=== PATIENT | male | born 1975 | race Caucasian/White ===

== ENCOUNTER 2019-02-10 15:15 | Outpatient (RCR) | payer OTHER, SELFPAY ==
[2019-01-21 13:19] VITALS: BP 176/97; PULSE 75; RESP 20; TEMP 36.9; BMI 64.5
--- NOTE | 2019-01-21 16:23 | PCM.WC.HP ---
(1) PVD (peripheral vascular disease) Status: Acute Current Visit: Yes Code(s): I73.9 - Peripheral vascular disease, unspecified (2) Chronic acquired lymphedema Status: Chronic Current Visit: Yes Code(s): I89.0 - Lymphedema, not elsewhere classified (3) Venous stasis ulcer of left lower leg with edema of left lower leg Status: Acute Current Visit: Yes Code(s): I83.029 - Varicose veins of left lower extremity with ulcer of unspecified site; I83.892 - Varicose veins of left lower extremity with other complications; L97.929 - Non-pressure chronic ulcer of unspecified part of left lower leg with unspecified severity; R60.9 - Edema, unspecified (4) Venous stasis ulcer of right lower leg with edema of right lower leg Status: Acute Current Visit: Yes Code(s): I83.019 - Varicose veins of right lower extremity with ulcer of unspecified site; I83.891 - Varicose veins of right lower extremity with other complications; L97.919 - Non-pressure chronic ulcer of unspecified part of right lower leg with unspecified severity; R60.9 - Edema, unspecified (5) Morbid obesity Status: Acute Current Visit: Yes Code(s): E66.01 - Morbid (severe) obesity due to excess calories History of Present Illness Date of Service: 01/21/19 Chief Complaint: Bilateral lower extremity ulcers present now for greater than 4 weeks. History of Wound: This is a 43-year-old white male who presents to the wound healing center today with complaint of nonhealing ulcers on bilateral lower extremities for greater than 4 weeks. He has a past medical history significant for peripheral vascular disease, [id number] smoking history, lymphedema, prior venous leg ulcers, and morbid obesity. The patient states that he has been utilizing Adaptic over his ulcerations. He states that he has lymphedema pumps at home but does not use them. He does state that he went to the emergency department recently and his legs were wrapped and bandaged. He notes a large amount of clear/yellow drainage. He does state that the wounds are painful at times. He denies any other aggravating or relieving factors. He does not have recent vascular testing. All other systems were reviewed and were negative with exception of those listed above. Past Medical History Past Medical History: Chronic Problems Chronic acquired lymphedema (Chronic) Surgical History: no surgical history Allergies/Adverse Reactions: Allergies No Known Allergies Allergy (Verified 01/21/19 13:35) Home Medications: Ambulatory Orders Medication Instructions Recorded Furosemide [Lasix] 20 mg PO BIDLX 01/21/19 Hydrocodone/Acetaminophen [Russell 1 ea PO Q4H PRN 01/21/19 5-325 Tablet] Lives: Alone Smoking Status: Former smoker Tobacco Use: Non-smoker Alcohol: None Drugs: None Review of Systems Constitutional: Denies: Chills, Fever, Weight Change Eyes: Denies: Pain, Vision Change HEENT: Denies: Difficulty Hearing, Difficulty Swallowing, Sinus Congestion Cardiovascular: Reports: Edema. Denies: Chest Pain, Palpitations Respiratory: Denies: Cough, Shortness of Breath Gastrointestinal: Denies: Diarrhea, Nausea, Vomiting Genitourinary: Denies: Dysuria, Hematuria Skin: Reports: Wounds - See HPI Endocrine: Denies: Heat/ Cold Intolerance, Polydipsia, Polyuria Hematologic/ Lymphatic: Denies: Easy Bruising, Easy Bleeding - Physical Exam Vital Signs Temp Pulse Resp BP 98.4 F 75 20 H 176/97 H 01/21/19 13:19 01/21/19 13:19 01/21/19 13:19 01/21/19 13:19 General: Alert, Oriented x3, Cooperative, No apparent distress HEENT: PERRLA, EOMI Neck: Supple, No JVD, Negative Carotid Bruits Lungs: Clear to auscultation Cardiovascular: Regular rate, Regular Rhythm Abdomen: Soft, Non Tender Extremities: Capillary Refill Less than 3 Seconds, Edema - 3+ pitting edema bilateral lower extremities with hemosiderin staining bilaterally and chronic venous changes present., Peripheral Pulses Normal Skin: Ulcer/ Wound - Ulcerations to bilateral lower extremities with large amount of adherent slough, less than 1 cm of periwound bed erythema, no odor, moderate amount of serous drainage present, no redness or streaking noted at this time. Wound Measurements and Assessment WC - Nurse 1 - General Ulcer Measurement Start: 01/21/19 13:16 Freq: Status: Active Protocol: Activity Type Activity Date Activity User E-Sign Co-Sign Detail Recorded Client Recorded Date Recorded By Document 01/21/19 13:19 NV [id number] 01/21/19 13:34 NV 01/21/19 13:19 Wound Center Nurse 1 [Ulcer Assessment] #3- R LAT LE CLUSTER -Combined with other wound No -Current Size (cm) - Length 5.5 -Current Size (cm) - Width 2.5 -Current Size (cm) - Depth 0.2 -Total Square Cm 13.75 -Date of Last Picture (Recall this 01/21/19 field) -Photo Taken Yes -Epithelialization None Present -Tunneling No -Undermining/Tunneling No -Circular Undermining No -Exudate Amt Medium -Exudate Type Serous -Wound Margin Distinct, Outline Attached -Granulation Amt Medium (34-66%) -Granulation Quality Red -Slough/Fibrin Yes -Necrosis Amt Medium (34-66%) -Necrotic Tissue Type Adherent Slough -Texture (Krystle-wound Skin Appearance) Assessed, Scarring -Moisture (Krystle-wound Skin Appearance Assessed,Dry/ ) Scaly -Color (Krystle-wound Skin Appearance) Assessed, Erythema, Hemosiderin Staining -Temperature (Krystle-wound Skin No Abnormality Appearance) (Pt Warm) -Tenderness on Palpation (Krystle-wound Yes Skin Appearance) -Ulcer Cleansing SOAPY WATER -Foul Odor after Cleansing No -Anesthetic Used 4% Lidocaine Solution #2- L LATERAL/POSTERIOR LE CLUSTER -Combined with other wound No -Current Size (cm) - Length 13.5 -Current Size (cm) - Width 18 -Current Size (cm) - Depth 0.2 -Total Square Cm 243.0 -Date of Last Picture (Recall this 01/21/19 field) -Photo Taken Yes -Epithelialization None Present -Tunneling No -Undermining/Tunneling No -Circular Undermining No -Exudate Amt Large -Exudate Type Serous -Wound Margin Distinct, Outline Attached -Granulation Amt Medium (34-66%) -Granulation Quality Red -Slough/Fibrin Yes -Necrosis Amt Medium (34-66%) -Necrotic Tissue Type Adherent Slough -Texture (Krystle-wound Skin Appearance) Assessed, Scarring -Moisture (Krystle-wound Skin Appearance Assessed, ) Weeping,Dry/ Scaly -Color (Krystle-wound Skin Appearance) Assessed, Erythema, Hemosiderin Staining -Temperature (Krystle-wound Skin No Abnormality Appearance) (Pt Warm) -Tenderness on Palpation (Krystle-wound Yes Skin Appearance) -Ulcer Cleansing SOAPY WATER -Foul Odor after Cleansing No -Anesthetic Used 4% Lidocaine Solution [Edema Assessment] -Lower Limb Edema Present Yes -Right Calf (cm) 56 -Right Ankle (cm) 34 -Left Calf (cm) 58 -Left Ankle (cm) 35 WC - Nurse 2 - General Ulcer CM Notes Start: 01/21/19 13:16 Freq: Status: Active Protocol: Activity Type Activity Date Activity User E-Sign Co-Sign Detail Recorded Client Recorded Date Recorded By Document 01/21/19 14:15 MW [id number] 01/21/19 14:26 MW 01/21/19 14:15 Wound Center Nurse 2 [Procedure/Treatment] #3- R LAT LE CLUSTER -Time 14:24 -Correct Patient Yes -Correct Side, Site, Position Yes -Correct Procedure Yes -Procedure Performed Yes -Type of Procedure Debridement -Clinical Debridement Subcutaneous -Post Debridement Size (cm) - Length 7.0 -Post Debridement Size (cm) - Width 5.0 -Post Debridement Size (cm) - Depth 0.2 -Total Square Cm 35.00 -Wound/Ulcer Outcome Not Healed -Ulcer Cleansing Rinsed/ Irrigated with Saline -Foul Odor after Cleansing No -Bioengineered Tissue No -Bleeding Controlled with Pressure -Offloading No -Treatment Response Procedure Tolerated Well #2- L LATERAL/POSTERIOR LE CLUSTER -Time 14:15 -Correct Patient Yes -Correct Side, Site, Position Yes -Correct Procedure Yes -Procedure Performed Yes -Type of Procedure Debridement -Clinical Debridement Subcutaneous -Post Debridement Size (cm) - Length 17.0 -Post Debridement Size (cm) - Width 20.0 -Post Debridement Size (cm) - Depth 0.3 -Total Square Cm 340.00 -Wound/Ulcer Outcome Not Healed -Ulcer Cleansing Rinsed/ Irrigated with Saline -Foul Odor after Cleansing No -Bioengineered Tissue No -Bleeding Controlled with Pressure -Offloading No -Treatment Response Procedure Tolerated Well [See Physician Procedure note for Specifics] Pain Scale: 0-10 Numeric [Pain] -Is Patient Pain Free? Yes Neurological: Neuro grossly intact Psych/Mental Status: Normal Affect, Appropriate, Alert and oriented to time, place, person, mood and affect Debridement Note Post-Debridement Measurements/Treatment HUGO - Nurse 2 - General Ulcer CM Notes Start: 01/21/19 13:16 Freq: Status: Active Protocol: Activity Type Activity Date Activity User E-Sign Co-Sign Detail Recorded Client Recorded Date Recorded By Document 01/21/19 14:15 MW [id number] 01/21/19 14:26 MW 01/21/19 14:15 Wound Center Nurse 2 #3- R LAT LE CLUSTER -Time 14:24 -Correct Patient Yes -Correct Side, Site, Position Yes -Correct Procedure Yes -Procedure Performed Yes -Type of Procedure Debridement -Clinical Debridement Subcutaneous -Post Debridement Size (cm) - Length 7.0 -Post Debridement Size (cm) - Width 5.0 -Post Debridement Size (cm) - Depth 0.2 -Total Square Cm 35.00 -Wound/Ulcer Outcome Not Healed -Ulcer Cleansing Rinsed/ Irrigated with Saline -Foul Odor after Cleansing No -Bioengineered Tissue No -Bleeding Controlled with Pressure -Offloading No -Treatment Response Procedure Tolerated Well #2- L LATERAL/POSTERIOR LE CLUSTER -Time 14:15 -Correct Patient Yes -Correct Side, Site, Position Yes -Correct Procedure Yes -Procedure Performed Yes -Type of Procedure Debridement -Clinical Debridement Subcutaneous -Post Debridement Size (cm) - Length 17.0 -Post Debridement Size (cm) - Width 20.0 -Post Debridement Size (cm) - Depth 0.3 -Total Square Cm 340.00 -Wound/Ulcer Outcome Not Healed -Ulcer Cleansing Rinsed/ Irrigated with Saline -Foul Odor after Cleansing No -Bioengineered Tissue No -Bleeding Controlled with Pressure -Offloading No -Treatment Response Procedure Tolerated Well Pain Scale: 0-10 Numeric Is Patient Pain Free? Yes Wound debrided: Right lower extremity ulcer venous Laterality: Right Type of Debridement: Excisional debridement Anesthesia Used: 5% Lidocaine Gel Depth: in the subcutaneous layer Percentage of wound debrided: 100 Instrument Used: 7mm curette Tissue Removed: Large amount of slough and devitalized tissue Severity: Fat Layer Exposed Amount of bleeding with debridement: Mild Bleeding Controlled with: Pressure Patient tolerated procedure well - Additional Wound Wound debrided: Venous leg ulcer left lower extremity Laterality: Left Type of Debridement: Excisional debridement Anesthesia Used: 5% Lidocaine Gel Depth: in the subcutaneous layer Percentage of wound debrided: 100 Instrument Used: 7mm curette Tissue Removed: Slough and devitalized tissue Severity: Fat Layer Exposed Amount of bleeding with debridement: Mild Bleeding Controlled with: Pressure Patient tolerated procedure: Patient tolerated procedure well Assessment/Plan Active Problems PVD (peripheral vascular disease) (Acute) Chronic acquired lymphedema (Chronic) Venous stasis ulcer of left lower leg with edema of left lower leg (Acute) Venous stasis ulcer of right lower leg with edema of right lower leg (Acute) Morbid obesity (Acute) Assessment: See above diagnoses Plan: The patient was seen and examined at the wound center today and was updated on the plan of care. A subcutaneous debridement was performed today. The patient tolerated the procedure well. The patients wound care will consist of: Application of Aquacel silver over top of all ulcerations and then application of bilateral Unna boots which patient has tolerated well in the past, change Unna boots in 4 days. Wound cultures were collected. Baseline bloodwork ordered. Vascular studies ordered. Patient educated on the importance of diet on wound healing and instructed to increase protein and vitamin C intake. Patient verbalized understanding. Patient will follow up at wound healing center in one week or sooner if needed. Did instruct patient that after we removed the Unna boot, he will have to be compliant with his lymphedema pumps. Patient has been advised to elevate lower extremities as much as possible. Elevation is to be implemented during daytime hours and legs are to be elevated to heart level, or higher, as much as possible. Prolonged idle sitting has been discouraged. Activity and ambulation has been encouraged. Given the duration of his wound and the fact that he has failed standard wound therapy for greater than 4 weeks, will apply for the use of an advanced skin substitute. This note was generated with [employer] dictation software. It may contain incorrect words, spelling, and punctuation that were not noted in checking the note before signing. Code Visit Office Visits / Consults: 77730 OV L4 New [id number]: [id number] Carly subq tissue 20 sq cm/< Add On Codes: 92189 Carly subq tissue add-on
[2019-01-25 08:36] VITALS: BP 156/98; PULSE 69; RESP 18; TEMP 37.1; BMI 64.5
[2019-01-25 09:55] LABS: Hematocrit 45.4 % (40-54); Hemoglobin 15.3 g/dL (13.0-16.5); Mean Corp Hgb Conc 33.7 g/dL (32-36); Mean Corpuscular Hgb 27.6 pg (27.0-32.0); Mean Corpuscular Volume 81.8 fL (80-94); Mean Platelet Vol. 9.3 fl (6.2-12.0); Platelet Count 328 K/mm3 (150-450); RBC Distribution Width CV 12.5 % (11.6-14.6); RBC Distribution Width SD 37.1 fl (35.1-43.9); Red Blood Count 5.55 M/mm3 (4.6-6.2); White Blood Count 8.7 K/mm3 (4.4-11.0)
[2019-01-25 10:25] LABS: Hemoglobin A1c 5.2 % (4.2-6.3)
[2019-01-25 10:41] LABS: ALB/GLOB Ratio 0.9 RATIO (0.9-2.4); AST(SGOT) 21 U/L (15-37); Alanine Aminotransfer ALT/SGPT 23 U/L (16-61); Albumin, Serum 3.5 g/dL (3.2-5.0); Alkaline Phosphatase 88 U/L (45-117); Anion Gap 9 (5-15); BUN 16 mg/dL (7-18); Calcium,Total 8.8 mg/dL (8.5-10.1); Chloride 103 mmol/L (98-107); EST Glomerular Filtration Rate 111 mL/min (>60); Est Glom Filt Rate - Afr Amer 134 mL/min (>60); Globulin 3.9 g/dL (2.2-4.2); Glucose 86 mg/dL (74-106); Prealbumin 23.3 mg/dL (20.0-40.0); Protein, Total 7.4 g/dL (6.4-8.2); Sodium Level 140 mmol/L (136-145)
[2019-01-28 13:55] VITALS: BP 187/98; PULSE 67; RESP 20; TEMP 35.9; BMI 64.5
--- NOTE | 2019-02-01 10:05 | VDLE_ITS ---
Reason For Study: Edema RIGHT LEFT GSV is normal. GSV is normal. CFV is compressible, spontaneous, phasic, CFV is compressible, spontaneous, phasic, competent and demonstrates normal competent, and demonstrates normal augmentation. augmentation. FV is compressible, spontaneous, phasic, FV is compressible, spontaneous, phasic, competent and demonstrates normal competent and demonstrates normal augmentation. augmentation. POP V is compressible, spontaneous, phasic, POP V is compressible, spontaneous, phasic, competent and demonstrates normal competent and demonstrates normal augmentation. augmentation. T/P Trunk is compressible. T/P Trunk is compressible. Unable to visualize PTV, PeroV and GSV below Unable to visualize PTV, PeroV and GSV below knee due to leg wrappings. knee due to leg wrappings. SFJ is INCOMPETENT and measures 0.52 x 0.56 SFJ is INCOMPETENT and measures 0.86 x 0.78 cm. cm. GSV proximal thigh measures 0.61 x 0.64 cm. GSV proximal thigh measures 0.49 x 0.51 cm. GSV at knee measures 0.65 x 0.65 cm. GSV at knee measures 0.54 x 0.52 cm. GSV above knee is INCOMPETENT for greater GSV above knee is competent. than 0.5 seconds. Procedure Exam performed in department. The study was technically limited. The study was technically difficult. A preliminary report was called and/or faxed to . Interpretation Summary Deep veins of the lower extremities are bilaterally patent and compressible segmentally. There is no evidence of deep vein thrombosis on either side. Valvular competence appears intact within the proximal deep venous systems bilaterally. The great saphenous veins appear bilaterally patent and compressible segmentally. The posterior tibial veins and peroneal veins, and the great saphenous veins below the knees, were not visualized due to the presence of wraps. Sapheno-femoral junctions are bilaterally incompetent . The right great saphenous vein appears incompetent above the knee. The left great saphenous vein appears competent above the knee. Ordering Physician: Gabo Cheung Performed By: Yoselin Jacobo RVT
--- NOTE | 2019-02-01 10:05 | ART_ITS ---
Reason For Study: PVD Procedure A bilateral lower extremity continuous wave Doppler with analog waveform analysis,segmental pressures,and ankle brachial indexes without exercise. Left Segmental Pressures Left brachial= 166mmHg. Left dorsalis pedis artery = 207mmHg. Left digit = 241 mmHg. The left dorsalis pedis waveforms are triphasic. Right Segmental Pressures Right brachial= 166mmHg. Right dorsalis pedis artery = 201mmHg. Right digit = >254 mmHg. The right dorsalis pedis waveforms are triphasic. Indices The right ankle brachial index by the dorsalis pedis is 1.21. The right digital-brachial index is NC. The left ankle brachial index by the dorsalis pedis is 1.25. The left digital-brachial index is 1.45. Interpretation Summary Triphasic Doppler waveforms are noted at ankle level bilaterally. Pulse-volume recordings appear satisfactory at all levels bilaterally. Resting ankle-brachial indices are normal bilaterally. The right digital-brachial index could not be determined due to the noncompressibility of the vasculature. The left digital-brachial index is supra-normal. There is no evidence of significant arterial occlusive disease in the lower extremities bilaterally. However, there is evidence of arterial calcification involving the digital arteries bilaterally. Ordering Physician: Gabo Cheung Performed By: Yoselin Jacobo RVT
[2019-02-01 11:17] VITALS: BP 157/93; PULSE 70; RESP 24; TEMP 36.6; BMI 64.5
--- NOTE | 2019-02-02 16:37 | PCM.WC.PN ---
(1) PVD (peripheral vascular disease) Status: Acute Current Visit: Yes Code(s): I73.9 - Peripheral vascular disease, unspecified (2) Chronic acquired lymphedema Status: Chronic Current Visit: Yes Code(s): I89.0 - Lymphedema, not elsewhere classified (3) Venous stasis ulcer of left lower leg with edema of left lower leg Status: Acute Current Visit: Yes Code(s): I83.029 - Varicose veins of left lower extremity with ulcer of unspecified site; I83.892 - Varicose veins of left lower extremity with other complications; L97.929 - Non-pressure chronic ulcer of unspecified part of left lower leg with unspecified severity; R60.9 - Edema, unspecified (4) Venous stasis ulcer of right lower leg with edema of right lower leg Status: Acute Current Visit: Yes Code(s): I83.019 - Varicose veins of right lower extremity with ulcer of unspecified site; I83.891 - Varicose veins of right lower extremity with other complications; L97.919 - Non-pressure chronic ulcer of unspecified part of right lower leg with unspecified severity; R60.9 - Edema, unspecified (5) Morbid obesity Status: Acute Current Visit: Yes Code(s): E66.01 - Morbid (severe) obesity due to excess calories Type of Wound Date of Service: 01/28/19 Chief Complaint: Bilateral lower extremity ulcers present now for greater than 4 weeks. History of Wound: This is a 43-year-old white male who presents to the wound healing center today with complaint of nonhealing ulcers on bilateral lower extremities for greater than 4 weeks. He has a past medical history significant for peripheral vascular disease, [id number] smoking history, lymphedema, prior venous leg ulcers, and morbid obesity. The patient states that he has been utilizing Adaptic over his ulcerations. He states that he has lymphedema pumps at home but does not use them. He does state that he went to the emergency department recently and his legs were wrapped and bandaged. He notes a large amount of clear/yellow drainage. He does state that the wounds are painful at times. He denies any other aggravating or relieving factors. He does not have recent vascular testing. All other systems were reviewed and were negative with exception of those listed above. Progress of Wound: Ulcerations are improving in size, no new concerns at this time. Cultures were reviewed and showed Pseudomonas, strep, and staph and patient was placed on Cipro and clindamycin and Culturelle which he is tolerating well.The patient otherwise denies any fever, chills, nausea, vomiting, shortness of breath, chest pain or pressure, palpitations, orthopnea, lower extremity edema, syncope or presyncopal episodes. - Physical Exam Vital Signs Temp Pulse Resp BP 97.8 F 70 24 H 157/93 H 02/01/19 11:17 02/01/19 11:17 02/01/19 11:17 02/01/19 11:17 General: Alert, Oriented x3, Cooperative, No apparent distress HEENT: Atraumatic Oral: Moist Mucosa Lungs: Clear to auscultation, Normal air movement Cardiovascular: Regular rate, Regular Rhythm Abdomen: Soft, Non Tender, Obese Extremities: No clubbing, No cyanosis, Edema - +1 bilateral lower extremity edema Skin: Ulcer/ Wound - Ulcerations to bilateral lower extremities with adherent slough, no signs of obvious infection at this time, chronic venous changes present bilateral lower extremities withHemosiderin staining Wound Measurements and Assessment WC - Nurse 1 - General Ulcer Measurement Start: 01/21/19 13:16 Freq: Status: Active Protocol: Activity Type Activity Date Activity User E-Sign Co-Sign Detail Recorded Client Recorded Date Recorded By Document 02/01/19 11:17 DL [id number] 02/01/19 11:36 DL 02/01/19 11:17 Wound Center Nurse 1 [Ulcer Assessment] #3- R LAT LE CLUSTER -Temperature (Krystle-wound Skin No Abnormality Appearance) (Pt Warm) -Tenderness on Palpation (Krystle-wound No Skin Appearance) -Ulcer Cleansing Wound Cleanser -Foul Odor after Cleansing No #2- L LATERAL/POSTERIOR LE CLUSTER -Temperature (Krystle-wound Skin No Abnormality Appearance) (Pt Warm) -Tenderness on Palpation (Krystle-wound No Skin Appearance) -Ulcer Cleansing Wound Cleanser -Foul Odor after Cleansing No Neurological: Neuro grossly intact Psych/Mental Status: Normal Affect, Appropriate, Alert and oriented to time, place, person, mood and affect Debridement Note Post-Debridement Measurements/Treatment WC - Nurse 2 - General Ulcer CM Notes Start: 01/21/19 13:16 Freq: Status: Active Protocol: Activity Type Activity Date Activity User E-Sign Co-Sign Detail Recorded Client Recorded Date Recorded By Document 01/21/19 14:15 MW [id number] 01/21/19 14:26 MW Document 01/28/19 14:50 MW [id number] 01/28/19 14:53 MW 01/21/19 01/28/19 14:15 14:50 Wound Center Nurse 2 #3- R LAT LE CLUSTER -Time 14:24 14:50 -Correct Patient Yes Yes -Correct Side, Site, Position Yes Yes -Correct Procedure Yes Yes -Procedure Performed Yes Yes -Type of Procedure Debridement Debridement -Clinical Debridement Subcutaneous Subcutaneous -Post Debridement Size (cm) - Length 7.0 6.0 -Post Debridement Size (cm) - Width 5.0 2.0 -Post Debridement Size (cm) - Depth 0.2 0.2 -Total Square Cm 35.00 12.00 -Wound/Ulcer Outcome Not Healed Not Healed -Ulcer Cleansing Rinsed/ Rinsed/ Irrigated with Irrigated with Saline Saline -Foul Odor after Cleansing No No -Bioengineered Tissue No No -Bleeding Controlled with Pressure Pressure -Offloading No No -Treatment Response Procedure Procedure Tolerated Well Tolerated Well #2- L LATERAL/POSTERIOR LE CLUSTER -Time 14:15 14:50 -Correct Patient Yes Yes -Correct Side, Site, Position Yes Yes -Correct Procedure Yes Yes -Procedure Performed Yes Yes -Type of Procedure Debridement Debridement -Clinical Debridement Subcutaneous Subcutaneous -Post Debridement Size (cm) - Length 17.0 14.0 -Post Debridement Size (cm) - Width 20.0 17.5 -Post Debridement Size (cm) - Depth 0.3 0.2 -Total Square Cm 340.00 245.00 -Wound/Ulcer Outcome Not Healed Not Healed -Ulcer Cleansing Rinsed/ Rinsed/ Irrigated with Irrigated with Saline Saline -Foul Odor after Cleansing No No -Bioengineered Tissue No No -Bleeding Controlled with Pressure Pressure -Offloading No No -Treatment Response Procedure Procedure Tolerated Well Tolerated Well Pain Scale: 0-10 Numeric Is Patient Pain Free? Yes Yes Wound debrided: Right and left venous leg ulcers Type of Debridement: Excisional debridement Anesthesia Used: 5% Lidocaine Gel Depth: in the subcutaneous layer Percentage of wound debrided: 100 Instrument Used: 7mm curette Tissue Removed: Slough and devitalized tissue Severity: Fat Layer Exposed Amount of bleeding with debridement: Mild Bleeding Controlled with: Pressure Patient tolerated procedure well Assessment/Plan Active Problems PVD (peripheral vascular disease) (Acute) Chronic acquired lymphedema (Chronic) Venous stasis ulcer of left lower leg with edema of left lower leg (Acute) Venous stasis ulcer of right lower leg with edema of right lower leg (Acute) Morbid obesity (Acute) Assessment: See above diagnoses Plan: The patient was seen and examined at the wound center today and was updated on the plan of care. A subcutaneous debridement was performed today. The patient tolerated the procedure well. The patients wound care will consist of: Application of Aquacel silver over top of all ulcerations and then application of bilateral Unna boots which patient has tolerated well in the past, change Unna boots in 4 days. Wound cultures were collected Prior and showed Pseudomonas, strep, and staph and patient was placed on Cipro, clindamycin, and Culturelle. Baseline bloodwork ordered And pending at this time. Vascular studies Pending. Patient educated on the importance of diet on wound healing and instructed to increase protein and vitamin C intake. Patient verbalized understanding. Patient will follow up at wound healing center in one week or sooner if needed. Did instruct patient that after we removed the Unna boot, he will have to be compliant with his lymphedema pumps. Patient has been advised to elevate lower extremities as much as possible. Elevation is to be implemented during daytime hours and legs are to be elevated to heart level, or higher, as much as possible. Prolonged idle sitting has been discouraged. Activity and ambulation has been encouraged. Given the duration of his wound and the fact that he has failed standard wound therapy for greater than 4 weeks, will apply for the use of an advanced skin substitute. This note was generated with [employer] software. It may contain incorrect words, spelling, and punctuation that were not noted in checking the note before signing. Code Visit 111xxx-113xx: 33181 Carly subq tissue 20 sq cm/< Add On Codes: 75634 Carly subq tissue add-on - x 11
[2019-02-04 13:54] VITALS: BP 185/108; PULSE 75; RESP 20; TEMP 36.2; BMI 64.5
--- NOTE | 2019-02-04 18:58 | PN.PCM_ITS ---
(1) PVD (peripheral vascular disease) Status: Acute Code(s): I73.9 - Peripheral vascular disease, unspecified (2) Chronic acquired lymphedema Status: Chronic Code(s): I89.0 - Lymphedema, not elsewhere classified (3) Venous stasis ulcer of left lower leg with edema of left lower leg Status: Acute Code(s): I83.029 - Varicose veins of left lower extremity with ulcer of unspecified site; I83.892 - Varicose veins of left lower extremity with other complications; L97.929 - Non-pressure chronic ulcer of unspecified part of left lower leg with unspecified severity; R60.9 - Edema, unspecified (4) Venous stasis ulcer of right lower leg with edema of right lower leg Status: Acute Code(s): I83.019 - Varicose veins of right lower extremity with ulcer of unspecified site; I83.891 - Varicose veins of right lower extremity with other complications; L97.919 - Non-pressure chronic ulcer of unspecified part of right lower leg with unspecified severity; R60.9 - Edema, unspecified (5) Morbid obesity Status: Acute Code(s): E66.01 - Morbid (severe) obesity due to excess calories Type of Wound Date of Service: 02/04/19 Chief Complaint: Bilateral lower extremity ulcers present now for greater than 4 weeks. History of Wound: This is a 43-year-old white male who presents to the wound healing center today with complaint of nonhealing ulcers on bilateral lower extremities for greater than 4 weeks. He has a past medical history significant for peripheral vascular disease, [id number] smoking history, lymphedema, prior venous leg ulcers, and morbid obesity. The patient states that he has been utilizing Adaptic over his ulcerations. He states that he has lymphedema pumps at home but does not use them. He does state that he went to the emergency department recently and his legs were wrapped and bandaged. He notes a large amount of clear/yellow drainage. He does state that the wounds are painful at times. He denies any other aggravating or relieving factors. He does not have recent vascular testing. All other systems were reviewed and were negative with exception of those listed above. Progress of Wound: Ulcerations are improving in size, no new concerns at this time. Cultures were reviewed and showed Pseudomonas, strep, and staph and patient was placed on Cipro and clindamycin and Culturelle which he is nury ating well.The patient otherwise denies any fever, chills, nausea, vomiting, shortness of breath, chest pain or pressure, palpitations, orthopnea, lower extremity edema, syncope or presyncopal episodes. - Physical Exam Vital Signs Temp Pulse Resp BP 97.1 F L 75 20 H 185/108 H 02/04/19 13:54 02/04/19 13:54 02/04/19 13:54 02/04/19 13:54 General: Alert, Oriented x3, Cooperative, No apparent distress HEENT: Atraumatic Oral: Moist Mucosa Lungs: Clear to auscultation, Normal air movement Cardiovascular: Regular rate, Regular Rhythm Abdomen: Soft, Non Tender, Obese Extremities: Edema - +2 pitting bilateral lower extremity edema Skin: Ulcer/ Wound - Ulcerations to bilateral lower extremities with adherent slough, no signs of infection at this time, large amount of serosanguineous drainage Neurological: Neuro grossly intact Psych/Mental Status: Normal Affect, Appropriate, Alert and oriented to time, place, person, mood and affect Debridement Note Post-Debridement Measurements/Treatment WC - Nurse 2 - General Ulcer CM Notes Start: 01/21/19 13:16 Freq: Status: Active Protocol: Activity Type Activity Date Activity User E-Sign Co-Sign Detail Recorded Client Recorded Date Recorded By Document 01/21/19 14:15 MW [id number] 01/21/19 14:26 MW Document 01/28/19 14:50 MW [id number] 01/28/19 14:53 MW Document 02/04/19 14:56 MW [id number] 02/04/19 15:06 MW 01/21/19 01/28/19 02/04/19 14:15 14:50 14:56 Wound Center Nurse 2 #3- R LAT LE CLUSTER -Time 14:24 14:50 14:56 -Correct Patient Yes Yes Yes -Correct Side, Site, Position Yes Yes Yes -Correct Procedure Yes Yes Yes -Procedure Performed Yes Yes Yes -Type of Procedure Debridement Debridement Debridement -Clinical Debridement Subcutaneous Subcutaneous Subcutaneous -Post Debridement Size (cm) - Length 7.0 6.0 5.3 -Post Debridement Size (cm) - Width 5.0 2.0 2.5 -Post Debridement Size (cm) - Depth 0.2 0.2 0.2 -Total Square Cm 35.00 12.00 13.25 -Wound/Ulcer Outcome Not Healed Not Healed Not Healed -Ulcer Cleansing Rinsed/ Rinsed/ Rinsed/ Irrigated with Irrigated with Irrigated with Saline Saline Saline -Foul Odor after Cleansing No No No -Bioengineered Tissue No No No -Bleeding Controlled with Pressure Pressure Pressure,Silver Nitrate -Offloading No No No -Treatment Response Procedure Procedure Procedure Tolerated Well Tolerated Well Tolerated Well #2- L LATERAL/POSTERIOR LE CLUSTER -Time 14:15 14:50 14:56 -Correct Patient Yes Yes Yes -Correct Side, Site, Position Yes Yes Yes -Correct Procedure Yes Yes Yes -Procedure Performed Yes Yes Yes -Type of Procedure Debridement Debridement Debridement -Clinical Debridement Subcutaneous Subcutaneous Subcutaneous -Post Debridement Size (cm) - Length 17.0 14.0 16.0 -Post Debridement Size (cm) - Width 20.0 17.5 12.0 -Post Debridement Size (cm) - Depth 0.3 0.2 0.2 -Total Square Cm 340.00 245.00 192.00 -Wound/Ulcer Outcome Not Healed Not Healed Not Healed -Ulcer Cleansing Rinsed/ Rinsed/ Rinsed/ Irrigated with Irrigated with Irrigated with Saline Saline Saline -Foul Odor after Cleansing No No No -Bioengineered Tissue No No No -Bleeding Controlled with Pressure Pressure Pressure,Silver Nitrate -Offloading No No No -Treatment Response Procedure Procedure Procedure Tolerated Well Tolerated Well Tolerated Well Pain Scale: 0-10 Numeric Is Patient Pain Free? Yes Yes Yes Wound debrided: Right lower extremity venous leg ulcers Laterality: Right Type of Debridement: Excisional debridement Anesthesia Used: 5% Lidocaine Gel Depth: in the subcutaneous layer Percentage of wound debrided: 100 Instrument Used: 7mm curette Tissue Removed: Slough and devitalized tissue Severity: Fat Layer Exposed Amount of bleeding with debridement: Mild Bleeding Controlled with: Pressure, Silver Nitrate Patient tolerated procedure well - Additional Wound Wound debrided: Left lower extremity venous leg ulcers Laterality: Left Type of Debridement: Excisional debridement Anesthesia Used: 5% Lidocaine Gel Depth: in the subcutaneous layer Percentage of wound debrided: 100 Instrument Used: 7mm curette Tissue Removed: Slough and devitalized tissue Severity: Fat Layer Exposed Amount of bleeding with debridement: Mild Bleeding Controlled with: Pressure, Silver Nitrate Patient tolerated procedure: Patient tolerated procedure well Assessment/Plan Assessment: See above diagnoses Plan: The patient was seen and examined at the wound center today and was updated on the plan of care. A subcutaneous debridement was performed today. The patient tolerated the procedure well. The patients wound care will consist of: Application of Aquacel silver over top of all ulcerations and then application of bilateral Unna boots which patient has tolerated well in the past, change Unna boots in 4 days. Wound cultures were collected Prior and showed Pseudomonas, strep, and staph and patient was placed on Cipro, clindamycin, and Culturelle Which he has completed. Baseline bloodwork ordered And Essentially normal. Vascular studies Showed venous insufficiency and normal ABIs without any evidence of arterial occlusive disease. Patient educated on the importance of diet on wound healing and instructed to increase protein and vitamin C intake. Patient verbalized understanding. Patient will follow up at wound healing center in one week or sooner if needed. Did instruct patient that after we removed the Unna boot, he will have to be compliant with his lymphedema pumps. Patient has been advised to elevate lower extremities as much as possible. Elevation is to be implemented during daytime hours and legs are to be elevated to heart level, or higher, as much as possible. Prolonged idle sitting has been discouraged. Activity and ambulation has been encouraged. Given the duration of his wound and the fact that he has failed standard wound therapy for greater than 4 weeks, will apply for the use of an advanced skin substitute. This note was generated with [employer] software. It may contain incorrect words, spelling, and punctuation that were not noted in checking the note before signing. Code Visit 111xxx-113xx: 25758 Carly subq tissue 20 sq cm/< Add On Codes: 69359 Carly subq tissue add-on - x10
[2019-02-10 12:33] VITALS: BP 168/86; PULSE 69; RESP 18; TEMP 36.6; BMI 64.5
--- NOTE | 2019-02-10 21:00 | PN.PCM_ITS ---
(1) PVD (peripheral vascular disease) Status: Acute Code(s): I73.9 - Peripheral vascular disease, unspecified (2) Chronic acquired lymphedema Status: Chronic Code(s): I89.0 - Lymphedema, not elsewhere classified (3) Venous stasis ulcer of left lower leg with edema of left lower leg Status: Acute Code(s): I83.029 - Varicose veins of left lower extremity with ulcer of unspecified site; I83.892 - Varicose veins of left lower extremity with other complications; L97.929 - Non-pressure chronic ulcer of unspecified part of left lower leg with unspecified severity; R60.9 - Edema, unspecified (4) Venous stasis ulcer of right lower leg with edema of right lower leg Status: Acute Code(s): I83.019 - Varicose veins of right lower extremity with ulcer of unspecified site; I83.891 - Varicose veins of right lower extremity with other complications; L97.919 - Non-pressure chronic ulcer of unspecified part of right lower leg with unspecified severity; R60.9 - Edema, unspecified (5) Morbid obesity Status: Acute Code(s): E66.01 - Morbid (severe) obesity due to excess calories Type of Wound Date of Service: 02/10/19 Chief Complaint: Bilateral lower extremity ulcers present now for greater than 4 weeks. History of Wound: This is a 43-year-old white male who presents to the wound healing center today with complaint of nonhealing ulcers on bilateral lower extremities for greater than 4 weeks. He has a past medical history significant for peripheral vascular disease, [id number] smoking history, lymphedema, prior venous leg ulcers, and morbid obesity. The patient states that he has been utilizing Adaptic over his ulcerations. He states that he has lymphedema pumps at home but does not use them. He does state that he went to the emergency department recently and his legs were wrapped and bandaged. He notes a large amount of clear/yellow drainage. He does state that the wounds are painful at times. He denies any other aggravating or relieving factors. He does not have recent vascular testing. All other systems were reviewed and were negative with exception of those listed above. Progress of Wound: Ulcerations are improving in size, no new concerns at this time. Cultures were reviewed and showed Pseudomonas, strep, and staph and patient was placed on Cipro and clindamycin and Culturelle which he complete d.The patient otherwise denies any fever, chills, nausea, vomiting, shortness of breath, chest pain or pressure, palpitations, orthopnea, lower extremity edema, syncope or presyncopal episodes. - Physical Exam Vital Signs Temp Pulse Resp BP 98 F 69 18 168/86 H 02/10/19 12:33 02/10/19 12:33 02/10/19 12:33 02/10/19 12:33 General: Alert, Oriented x3, Cooperative, No apparent distress HEENT: Atraumatic, PERRLA Oral: Moist Mucosa Lungs: Clear to auscultation Cardiovascular: Regular rate Abdomen: Soft, Non Tender, Obese Extremities: No clubbing, No cyanosis, Edema - +1 pitting BLLE edema Skin: Ulcer/ Wound - See nursing documentation, large amount of slough and devitalized tissue present, No signs of infection at this time. Neurological: Neuro grossly intact Psych/Mental Status: Normal Affect, Appropriate, Alert and oriented to time, place, person, mood and affect Debridement Note Post-Debridement Measurements/Treatment WC - Nurse 2 - General Ulcer CM Notes Start: 01/21/19 13:16 Freq: Status: Active Protocol: Activity Type Activity Date Activity User E-Sign Co-Sign Detail Recorded Client Recorded Date Recorded By Document 01/21/19 14:15 MW [id number] 01/21/19 14:26 MW Document 01/28/19 14:50 MW [id number] 01/28/19 14:53 MW Document 02/04/19 14:56 MW [id number] 02/04/19 15:06 MW Document 02/10/19 13:19 [id number] 02/10/19 13:24 01/21/19 01/28/19 02/04/19 14:15 14:50 14:56 Wound Center Nurse 2 #3- R LAT LE CLUSTER -Time 14:24 14:50 14:56 -Correct Patient Yes Yes Yes -Correct Side, Site, Position Yes Yes Yes -Correct Procedure Yes Yes Yes -Procedure Performed Yes Yes Yes -Type of Procedure Debridement Debridement Debridement -Clinical Debridement Subcutaneous Subcutaneous Subcutaneous -Post Debridement Size (cm) - Length 7.0 6.0 5.3 -Post Debridement Size (cm) - Width 5.0 2.0 2.5 -Post Debridement Size (cm) - Depth 0.2 0.2 0.2 -Total Square Cm 35.00 12.00 13.25 -Wound/Ulcer Outcome Not Healed Not Healed Not Healed -Ulcer Cleansing Rinsed/ Rinsed/ Rinsed/ Irrigated with Irrigated with Irrigated with Saline Saline Saline -Foul Odor after Cleansing No No No -Bioengineered Tissue No No No -Bleeding Controlled with Pressure Pressure Pressure,Silver Nitrate -Offloading No No No -Treatment Response Procedure Procedure Procedure Tolerated Well Tolerated Well Tolerated Well #2- L LATERAL/POSTERIOR LE CLUSTER -Time 14:15 14:50 14:56 -Correct Patient Yes Yes Yes -Correct Side, Site, Position Yes Yes Yes -Correct Procedure Yes Yes Yes -Procedure Performed Yes Yes Yes -Type of Procedure Debridement Debridement Debridement -Clinical Debridement Subcutaneous Subcutaneous Subcutaneous -Post Debridement Size (cm) - Length 17.0 14.0 16.0 -Post Debridement Size (cm) - Width 20.0 17.5 12.0 -Post Debridement Size (cm) - Depth 0.3 0.2 0.2 -Total Square Cm 340.00 245.00 192.00 -Wound/Ulcer Outcome Not Healed Not Healed Not Healed -Ulcer Cleansing Rinsed/ Rinsed/ Rinsed/ Irrigated with Irrigated with Irrigated with Saline Saline Saline -Foul Odor after Cleansing No No No -Bioengineered Tissue No No No -Bleeding Controlled with Pressure Pressure Pressure,Silver Nitrate -Offloading No No No -Treatment Response Procedure Procedure Procedure Tolerated Well Tolerated Well Tolerated Well Pain Scale: 0-10 Numeric Is Patient Pain Free? Yes Yes Yes 02/10/19 13:19 Wound Center Nurse 2 #3- R LAT LE CLUSTER -Time 13:19 -Correct Patient Yes -Correct Side, Site, Position Yes -Correct Procedure Yes -Procedure Performed Yes -Type of Procedure Debridement -Clinical Debridement Subcutaneous -Post Debridement Size (cm) - Length 4.5 -Post Debridement Size (cm) - Width 2.0 -Post Debridement Size (cm) - Depth 0.2 -Total Square Cm 9.00 -Wound/Ulcer Outcome Not Healed -Ulcer Cleansing Rinsed/ Irrigated with Saline -Foul Odor after Cleansing No -Bioengineered Tissue No -Bleeding Controlled with Pressure -Offloading No -Treatment Response Procedure Tolerated Well #2- L LATERAL/POSTERIOR LE CLUSTER -Time 13:20 -Correct Patient Yes -Correct Side, Site, Position Yes -Correct Procedure Yes -Procedure Performed Yes -Type of Procedure Debridement -Clinical Debridement Subcutaneous -Post Debridement Size (cm) - Length 16 -Post Debridement Size (cm) - Width 11.5 -Post Debridement Size (cm) - Depth 0.2 -Total Square Cm 184.0 -Wound/Ulcer Outcome Not Healed -Ulcer Cleansing Rinsed/ Irrigated with Saline -Foul Odor after Cleansing No -Bioengineered Tissue No -Bleeding Controlled with Pressure -Offloading No -Treatment Response Procedure Tolerated Well Pain Scale: 0-10 Numeric Is Patient Pain Free? Yes Wound debrided: Bilateral venous leg ulcers Type of Debridement: Excisional debridement Anesthesia Used: 5% Lidocaine Gel Depth: in the subcutaneous layer Percentage of wound debrided: 100 Instrument Used: 7mm curette Tissue Removed: Slough and devitalized tissue Severity: Fat Layer Exposed Amount of bleeding with debridement: Mild Bleeding Controlled with: Pressure Patient tolerated procedure well Assessment/Plan Assessment: See above diagnoses Plan: The patient was seen and examined at the wound center today and was updated on the plan of care. A subcutaneous debridement was performed today. The patient tolerated the procedure well. The patients wound care will consist of: Application of Aquacel silver over top of all ulcerations and then application of bilateral 3 m wraps which patient has tolerated well in the past. Wound cultures were collected Prior and showed Pseudomonas, strep, and staph and patient was placed on Cipro, clindamycin, and Culturelle Which he has completed. Baseline bloodwork ordered And Essentially normal. Vascular studies Showed venous insufficiency and normal ABIs without any evidence of arterial occlusive disease. Patient educated on the importance of diet on wound healing and instructed to increase protein and vitamin C intake. Patient verbalized understanding. Patient will follow up at wound healing center in one week or sooner if needed. Did instruct patient that after we Get his ulcers healed, he will have to be compliant with his lymphedema pumps. Patient has been advised to elevate lower extremities as much as possible. Elevation is to be implemented during daytime hours and legs are to be elevated to heart level, or higher, as much as possible. Prolonged idle sitting has been discouraged. Activity and ambulation has been encouraged. Given the duration of his wound and the fact that he has failed standard wound therapy for greater than 4 weeks, will apply for the use of an advanced skin substitute. This note was generated with [employer]ation software. It may contain incorrect words, spelling, and punctuation that were not noted in checking the note before signing. Code Visit 111xxx-113xx: 07127 Carly subq tissue 20 sq cm/< Add On Codes: 45289 Carly subq tissue add-on
== END 2019-02-13 23:59 ==
LOC: WC 15:15
PROVIDERS: Referring Provider Nurse Practitioner Family; Visit Provider Nurse Practitioner Family
DX: I83.018 Varicose veins of right lower extremity with ulcer other part of lower leg (principal); I83.028 Varicose veins of left lower extremity with ulcer other part of lower leg; L97.812 Non-pressure chronic ulcer of other part of right lower leg with fat layer exposed; L97.822 Non-pressure chronic ulcer of other part of left lower leg with fat layer exposed; I89.0 Lymphedema, not elsewhere classified; E66.01 Morbid (severe) obesity due to excess calories; Z68.44 Body mass index [BMI] 60.0-69.9, adult; Z71.3 Dietary counseling and surveillance; Z87.891 Personal history of nicotine dependence; R60.0 Localized edema; I73.9 Peripheral vascular disease, unspecified; Z79.899 Other long term (current) drug therapy
CPT/HCPCS: 11042; 11045; 29580; 29581; 36415; 80053; 83036; 84134; 85027; 87070; 87075; 87077; 87186; 87205; 93923; 93970; 99212; 99213; G0463

== ENCOUNTER 2019-03-12 10:00 | Outpatient (RCR) | payer OTHER, SELFPAY ==
[2019-02-14 01:13] VITALS: BP 168/86; PULSE 69; RESP 18; TEMP 36.6
[2019-02-15 13:23] VITALS: RESP 20; TEMP 37; BMI 64.5
[2019-02-18 14:13] VITALS: BP 195/107; PULSE 78; RESP 20; TEMP 36.2; BMI 64.5
--- NOTE | 2019-02-18 19:34 | PCM.WC.PN ---
(1) Morbid obesity Status: Acute Code(s): E66.01 - Morbid (severe) obesity due to excess calories (2) PVD (peripheral vascular disease) Status: Acute Code(s): I73.9 - Peripheral vascular disease, unspecified (3) Venous stasis ulcer of left lower leg with edema of left lower leg Status: Acute Code(s): I83.029 - Varicose veins of left lower extremity with ulcer of unspecified site; I83.892 - Varicose veins of left lower extremity with other complications; L97.929 - Non-pressure chronic ulcer of unspecified part of left lower leg with unspecified severity; R60.9 - Edema, unspecified (4) Venous stasis ulcer of right lower leg with edema of right lower leg Status: Acute Code(s): I83.019 - Varicose veins of right lower extremity with ulcer of unspecified site; I83.891 - Varicose veins of right lower extremity with other complications; L97.919 - Non-pressure chronic ulcer of unspecified part of right lower leg with unspecified severity; R60.9 - Edema, unspecified (5) Chronic acquired lymphedema Status: Chronic Code(s): I89.0 - Lymphedema, not elsewhere classified Type of Wound Date of Service: 02/18/19 Chief Complaint: Bilateral lower extremity ulcers present now for greater than 4 weeks. History of Wound: This is a 43-year-old white male who presents to the wound healing center today with complaint of nonhealing ulcers on bilateral lower extremities for greater than 4 weeks. He has a past medical history significant for peripheral vascular disease, [id number] smoking history, lymphedema, prior venous leg ulcers, and morbid obesity. The patient states that he has been utilizing Adaptic over his ulcerations. He states that he has lymphedema pumps at home but does not use them. He does state that he went to the emergency department recently and his legs were wrapped and bandaged. He notes a large amount of clear/yellow drainage. He does state that the wounds are painful at times. He denies any other aggravating or relieving factors. He does not have recent vascular testing. All other systems were reviewed and were negative with exception of those listed above. Progress of Wound: Ulcerations are improving in size, no new concerns at this time. Cultures were reviewed and showed Pseudomonas, strep, and staph and patient was placed on Cipro and clindamycin and Culturelle which he is tolerating well.The patient otherwise denies any fever, chills, nausea, vomiting, shortness of breath, chest pain or pressure, palpitations, orthopnea, lower extremity edema, syncope or presyncopal episodes. - Physical Exam Vital Signs Temp Pulse Resp BP 97.2 F L 78 20 H 195/107 H 02/18/19 14:13 02/18/19 14:13 02/18/19 14:13 02/18/19 14:13 General: Alert, Oriented x3, Cooperative, No apparent distress HEENT: Atraumatic Oral: Moist Mucosa Lungs: Clear to auscultation Cardiovascular: Regular rate Abdomen: Soft, Obese Extremities: No clubbing, No cyanosis, Edema - +1 BLLE edema Skin: Ulcer/ Wound - see nursing documentation, no signs of obvious infection at this time Musculoskeletal: No Tenderness to Palpation of Joints or Extremities Neurological: Motor Exam 5/5 strength throughout Psych/Mental Status: Normal Affect, Appropriate, Alert and oriented to time, place, person, mood and affect Debridement Note Post-Debridement Measurements/Treatment WC - Nurse 2 - General Ulcer CM Notes Start: 02/15/19 13:23 Freq: Status: Active Protocol: Activity Type Activity Date Activity User E-Sign Co-Sign Detail Recorded Client Recorded Date Recorded By Document 02/18/19 14:45 MW [id number] 02/18/19 14:48 MW 02/18/19 14:45 Wound Center Nurse 2 #3- R LAT LE CLUSTER -Time 14:45 -Correct Patient Yes -Correct Side, Site, Position Yes -Correct Procedure Yes -Procedure Performed Yes -Type of Procedure Debridement -Clinical Debridement Subcutaneous -Post Debridement Size (cm) - Length 4.5 -Post Debridement Size (cm) - Width 1.0 -Post Debridement Size (cm) - Depth 0.1 -Total Square Cm 4.50 -Wound/Ulcer Outcome Not Healed -Ulcer Cleansing Rinsed/ Irrigated with Saline -Foul Odor after Cleansing No -Bioengineered Tissue No -Bleeding Controlled with Pressure -Offloading No -Treatment Response Procedure Tolerated Well #2- L LATERAL/POSTERIOR LE CLUSTER -Time 14:46 -Correct Patient Yes -Correct Side, Site, Position Yes -Correct Procedure Yes -Procedure Performed Yes -Type of Procedure Debridement -Clinical Debridement Subcutaneous -Post Debridement Size (cm) - Length 10.5 -Post Debridement Size (cm) - Width 13.0 -Post Debridement Size (cm) - Depth 0.2 -Total Square Cm 136.50 -Wound/Ulcer Outcome Not Healed -Ulcer Cleansing Rinsed/ Irrigated with Saline -Foul Odor after Cleansing No -Bioengineered Tissue No -Bleeding Controlled with Pressure,Silver Nitrate -Offloading No -Treatment Response Procedure Tolerated Well Pain Scale: 0-10 Numeric Is Patient Pain Free? Yes Wound debrided: Right and left VLUs Type of Debridement: Excisional debridement Depth: in the subcutaneous layer Percentage of wound debrided: 100 Instrument Used: 7mm curette Tissue Removed: slough and devitalized tissue Severity: Fat Layer Exposed Amount of bleeding with debridement: Mild Bleeding Controlled with: Pressure Patient tolerated procedure well Assessment/Plan Assessment: See above diagnoses Plan: The patient was seen and examined at the wound center today and was updated on the plan of care. A subcutaneous debridement was performed today. The patient tolerated the procedure well. The patients wound care will consist of: Application of Aquacel silver over top of all ulcerations and then application of bilateral 3 m wraps which patient has tolerated well in the past. Wound cultures were collected Prior and showed Pseudomonas, strep, and staph and patient was placed on Cipro, clindamycin, and Culturelle Which he has completed. Baseline bloodwork ordered And Essentially normal. Vascular studies Showed venous insufficiency and normal ABIs without any evidence of arterial occlusive disease. Patient educated on the importance of diet on wound healing and instructed to increase protein and vitamin C intake. Patient verbalized understanding. Patient will follow up at wound healing center in one week or sooner if needed. Did instruct patient that after we Get his ulcers healed, he will have to be compliant with his lymphedema pumps. Patient has been advised to elevate lower extremities as much as possible. Elevation is to be implemented during daytime hours and legs are to be elevated to heart level, or higher, as much as possible. Prolonged idle sitting has been discouraged. Activity and ambulation has been encouraged. Given the duration of his wound and the fact that he has failed standard wound therapy for greater than 4 weeks, will apply for the use of an advanced skin substitute. This note was generated with [employer] software. It may contain incorrect words, spelling, and punctuation that were not noted in checking the note before signing. Code Visit 111xxx-113xx: 02514 Carly subq tissue 20 sq cm/< Add On Codes: 39401 Carly subq tissue add-on
[2019-02-25 13:53] VITALS: BP 161/80; PULSE 75; RESP 22; TEMP 36.6; BMI 64.5
--- NOTE | 2019-02-25 17:10 | PN.PCM_ITS ---
(1) Morbid obesity Status: Acute Code(s): E66.01 - Morbid (severe) obesity due to excess calories (2) PVD (peripheral vascular disease) Status: Acute Code(s): I73.9 - Peripheral vascular disease, unspecified (3) Venous stasis ulcer of left lower leg with edema of left lower leg Status: Acute Code(s): I83.029 - Varicose veins of left lower extremity with ulcer of unspecified site; I83.892 - Varicose veins of left lower extremity with other complications; L97.929 - Non-pressure chronic ulcer of unspecified part of left lower leg with unspecified severity; R60.9 - Edema, unspecified (4) Venous stasis ulcer of right lower leg with edema of right lower leg Status: Acute Code(s): I83.019 - Varicose veins of right lower extremity with ulcer of unspecified site; I83.891 - Varicose veins of right lower extremity with other complications; L97.919 - Non-pressure chronic ulcer of unspecified part of right lower leg with unspecified severity; R60.9 - Edema, unspecified (5) Chronic acquired lymphedema Status: Chronic Code(s): I89.0 - Lymphedema, not elsewhere classified Type of Wound Date of Service: 02/25/19 Chief Complaint: Bilateral lower extremity ulcers present now for greater than 4 weeks. History of Wound: This is a 43-year-old white male who presents to the wound healing center today with complaint of nonhealing ulcers on bilateral lower extremities for greater than 4 weeks. He has a past medical history significant for peripheral vascular disease, [id number] smoking history, lymphedema, prior venous leg ulcers, and morbid obesity. The patient states that he has been utilizing Adaptic over his ulcerations. He states that he has lymphedema pumps at home but does not use them. He does state that he went to the emergency department recently and his legs were wrapped and bandaged. He notes a large amount of clear/yellow drainage. He does state that the wounds are painful at times. He denies any other aggravating or relieving factors. He does not have recent vascular testing. All other systems were reviewed and were negative with exception of those listed above. Progress of Wound: Ulcerations are improving in size, no new concerns at this time. Cultures were reviewed and showed Pseudomonas, strep, and staph and patient was placed on Cipro and clindamycin and Culturelle which he Complete d.The patient otherwise denies any fever, chills, nausea, vomiting, shortness of breath, chest pain or pressure, palpitations, orthopnea, lower extremity edema, syncope or presyncopal episodes. - Physical Exam Vital Signs Temp Pulse Resp BP 97.9 F 75 22 H 161/80 H 02/25/19 13:53 02/25/19 13:53 02/25/19 13:53 02/25/19 13:53 General: Alert, Oriented x3, Cooperative, No apparent distress HEENT: Atraumatic Oral: Moist Mucosa Lungs: Clear to auscultation, Normal air movement Cardiovascular: Regular rate Abdomen: Soft, Non Tender, Obese Extremities: No clubbing, No cyanosis, Edema - +1 pitting bilateral lower extremity edema Skin: Ulcer/ Wound - See nursing documentation, bilateral lower extremity ulcers with adherent slough, no signs of obvious infection at this time. Neurological: Neuro grossly intact Psych/Mental Status: Normal Affect, Appropriate, Alert and oriented to time, place, person, mood and affect Debridement Note Post-Debridement Measurements/Treatment WC - Nurse 2 - General Ulcer CM Notes Start: 02/15/19 13:23 Freq: Status: Active Protocol: Activity Type Activity Date Activity User E-Sign Co-Sign Detail Recorded Client Recorded Date Recorded By Document 02/18/19 14:45 MW [id number] 02/18/19 14:48 MW Document 02/25/19 14:13 [id number] 02/25/19 14:15 02/18/19 02/25/19 14:45 14:13 Wound Center Nurse 2 #3- R LONG STEWART CLUSTER -Time 14:45 14:14 -Correct Patient Yes Yes -Correct Side, Site, Position Yes Yes -Correct Procedure Yes Yes -Procedure Performed Yes Yes -Type of Procedure Debridement Debridement -Clinical Debridement Subcutaneous Subcutaneous -Post Debridement Size (cm) - Length 4.5 2.6 -Post Debridement Size (cm) - Width 1.0 2.0 -Post Debridement Size (cm) - Depth 0.1 0.1 -Total Square Cm 4.50 5.20 -Wound/Ulcer Outcome Not Healed Not Healed -Ulcer Cleansing Rinsed/ Rinsed/ Irrigated with Irrigated with Saline Saline -Foul Odor after Cleansing No No -Bioengineered Tissue No No -Bleeding Controlled with Pressure Pressure -Offloading No No -Treatment Response Procedure Procedure Tolerated Well Tolerated Well #2- L LATERAL/POSTERIOR LE CLUSTER -Time 14:46 14:14 -Correct Patient Yes Yes -Correct Side, Site, Position Yes Yes -Correct Procedure Yes Yes -Procedure Performed Yes Yes -Type of Procedure Debridement Debridement -Clinical Debridement Subcutaneous Subcutaneous -Post Debridement Size (cm) - Length 10.5 11 -Post Debridement Size (cm) - Width 13.0 12 -Post Debridement Size (cm) - Depth 0.2 0.1 -Total Square Cm 136.50 132 -Wound/Ulcer Outcome Not Healed Not Healed -Ulcer Cleansing Rinsed/ Rinsed/ Irrigated with Irrigated with Saline Saline -Foul Odor after Cleansing No No -Bioengineered Tissue No No -Bleeding Controlled with Pressure,Silver Pressure Nitrate -Offloading No No -Treatment Response Procedure Procedure Tolerated Well Tolerated Well Pain Scale: 0-10 Numeric Is Patient Pain Free? Yes Yes Wound debrided: Bilateral lower extremity ulcers Type of Debridement: Excisional debridement Anesthesia Used: 5% Lidocaine Gel Depth: in the subcutaneous layer Percentage of wound debrided: 100 Instrument Used: 7mm curette Tissue Removed: Slough and devitalized tissue Severity: Fat Layer Exposed Amount of bleeding with debridement: Mild Bleeding Controlled with: Pressure Patient tolerated procedure well Assessment/Plan Assessment: See above diagnoses Plan: The patient was seen and examined at the wound center today and was updated on the plan of care. A subcutaneous debridement was performed today. The patient tolerated the procedure well. The patients wound care will consist of: Application of Aquacel extra over top of all ulcerations and then application of bilateral 3 m wraps which patient has tolerated well in the past. Wound cultures were collected Prior and showed Pseudomonas, strep, and staph and patient was placed on Cipro, clindamycin, and Culturelle Which he has completed. Baseline bloodwork ordered And Essentially normal. Vascular studies Showed venous insufficiency and normal ABIs without any evidence of arterial occlusive disea se. Patient educated on the importance of diet on wound healing and instructed to increase protein and vitamin C intake. Patient verbalized understanding. Patient will follow up at wound healing center in one week or sooner if needed. Did instruct patient that after we Get his ulcers healed, he will have to be compliant with his lymphedema pumps. Will also order [place] wraps for compression as well. Patient has been advised to elevate lower extremities as much as possible. Elevation is to be implemented during daytime hours and legs are to be elevated to heart level, or higher, as much as possible. Prolonged idle sitting has been discouraged. Activity and ambulation has been encouraged. Given the duration of his wound and the fact that he has failed standard wound therapy for greater than 4 weeks, will apply for the use of an advanced skin substitute. This note was generated with [employer] software. It may contain incorrect words, spelling, and punctuation that were not noted in checking the note before signing. Code Visit 111xxx-113xx: 71933 Carly subq tissue 20 sq cm/< Add On Codes: 13905 Carly subq tissue add-on
[2019-03-04 14:49] VITALS: BP 151/90; PULSE 92; RESP 18; TEMP 35.2; BMI 64.5
--- NOTE | 2019-03-04 20:49 | PN.PCM_ITS ---
(1) Morbid obesity Status: Acute Code(s): E66.01 - Morbid (severe) obesity due to excess calories (2) PVD (peripheral vascular disease) Status: Acute Code(s): I73.9 - Peripheral vascular disease, unspecified (3) Venous stasis ulcer of left lower leg with edema of left lower leg Status: Acute Code(s): I83.029 - Varicose veins of left lower extremity with ulcer of unspecified site; I83.892 - Varicose veins of left lower extremity with other complications; L97.929 - Non-pressure chronic ulcer of unspecified part of left lower leg with unspecified severity; R60.9 - Edema, unspecified (4) Venous stasis ulcer of right lower leg with edema of right lower leg Status: Acute Code(s): I83.019 - Varicose veins of right lower extremity with ulcer of unspecified site; I83.891 - Varicose veins of right lower extremity with other complications; L97.919 - Non-pressure chronic ulcer of unspecified part of right lower leg with unspecified severity; R60.9 - Edema, unspecified (5) Chronic acquired lymphedema Status: Chronic Code(s): I89.0 - Lymphedema, not elsewhere classified Type of Wound Date of Service: 03/04/19 Chief Complaint: Bilateral lower extremity ulcers present now for greater than 4 weeks. History of Wound: This is a 43-year-old white male who presents to the wound healing center today with complaint of nonhealing ulcers on bilateral lower extremities for greater than 4 weeks. He has a past medical history significant for peripheral vascular disease, [id number] smoking history, lymphedema, prior venous leg ulcers, and morbid obesity. The patient states that he has been utilizing Adaptic over his ulcerations. He states that he has lymphedema pumps at home but does not use them. He does state that he went to the emergency department recently and his legs were wrapped and bandaged. He notes a large amount of clear/yellow drainage. He does state that the wounds are painful at times. He denies any other aggravating or relieving factors. He does not have recent vascular testing. All other systems were reviewed and were negative with exception of those listed above. Progress of Wound: Ulcerations are improving in size,Right leg ulcer healed, no new concerns at this time. Cultures were reviewed and showed Pseudomonas, strep, and staph and patient was placed on Cipro and clindamycin and Culturelle which he Completed.The patient otherwise denies any fever, chills, nausea, vomiting, shortness of breath, chest pain or pressure, palpitations, orthopnea, lower extremity edema, syncope or presyncopal episodes. - Physical Exam Vital Signs Temp Pulse Resp BP 95.3 F L 92 18 151/90 H 03/04/19 14:49 03/04/19 14:49 03/04/19 14:49 03/04/19 14:49 General: Alert, Oriented x3, Cooperative, No apparent distress HEENT: Atraumatic Oral: Moist Mucosa Lungs: Clear to auscultation Cardiovascular: Regular rate Abdomen: Soft, Non Tender, Obese Extremities: No clubbing, No cyanosis, Edema - Generalized bilateral lower extremity edema Skin: Ulcer/ Wound - See nursing documentation, large amount of slough present, no signs of infection at this time Neurological: Neuro grossly intact Psych/Mental Status: Normal Affect, Appropriate, Alert and oriented to time, place, person, mood and affect Debridement Note Post-Debridement Measurements/Treatment WC - Nurse 2 - General Ulcer CM Notes Start: 02/15/19 13:23 Freq: Status: Active Protocol: Activity Type Activity Date Activity User E-Sign Co-Sign Detail Recorded Client Recorded Date Recorded By Document 02/18/19 14:45 MW [id number] 02/18/19 14:48 MW Document 02/25/19 14:13 [id number] 02/25/19 14:15 Document 03/04/19 15:06 MW [id number] 03/04/19 15:13 MW 02/18/19 02/25/19 03/04/19 14:45 14:13 15:06 Wound Center Nurse 2 #3- R LAT LE CLUSTER -Time 14:45 14:14 15:07 -Correct Patient Yes Yes Yes -Correct Side, Site, Position Yes Yes Yes -Correct Procedure Yes Yes Yes -Procedure Performed Yes Yes No -Type of Procedure Debridement Debridement -Clinical Debridement Subcutaneous Subcutaneous -Post Debridement Size (cm) - Length 4.5 2.6 -Post Debridement Size (cm) - Width 1.0 2.0 -Post Debridement Size (cm) - Depth 0.1 0.1 -Total Square Cm 4.50 5.20 -Wound/Ulcer Outcome Not Healed Not Healed Healed- Epithelialized -Ulcer Cleansing Rinsed/ Rinsed/ Not Cleansed Irrigated with Irrigated with Saline Saline -Foul Odor after Cleansing No No -Bioengineered Tissue No No -Bleeding Controlled with Pressure Pressure NA -Offloading No No -Treatment Response Procedure Procedure Tolerated Well Tolerated Well #2- L LATERAL/POSTERIOR LE CLUSTER -Time 14:46 14:14 15:07 -Correct Patient Yes Yes Yes -Correct Side, Site, Position Yes Yes Yes -Correct Procedure Yes Yes Yes -Procedure Performed Yes Yes Yes -Type of Procedure Debridement Debridement Debridement -Clinical Debridement Subcutaneous Subcutaneous Subcutaneous -Post Debridement Size (cm) - Length 10.5 11 9.0 -Post Debridement Size (cm) - Width 13.0 12 6.5 -Post Debridement Size (cm) - Depth 0.2 0.1 0.2 -Total Square Cm 136.50 132 58.50 -Wound/Ulcer Outcome Not Healed Not Healed Not Healed -Ulcer Cleansing Rinsed/ Rinsed/ Rinsed/ Irrigated with Irrigated with Irrigated with Saline Saline Saline -Foul Odor after Cleansing No No No -Bioengineered Tissue No No No -Bleeding Controlled with Pressure,Silver Pressure Pressure,Silver Nitrate Nitrate -Offloading No No No -Treatment Response Procedure Procedure Procedure Tolerated Well Tolerated Well Tolerated Well Pain Scale: 0-10 Numeric Is Patient Pain Free? Yes Yes Yes Wound debrided: venous leg ulcer Laterality: Left Type of Debridement: Excisional debridement Anesthesia Used: 5% Lidocaine Gel Depth: in the subcutaneous layer Percentage of wound debrided: 100 Instrument Used: 7mm curette Tissue Removed: Slough and devitalized tissue Severity: Fat Layer Exposed Amount of bleeding with debridement: Mild Bleeding Controlled with: Pressure Patient tolerated procedure well Assessment/Plan Assessment: See above diagnoses Plan: The patient was seen and examined at the wound center today and was updated on the plan of care. A subcutaneous debridement was performed today. The patient tolerated the procedure well. The patients wound care will consist of: Application of Aquacel extra over top of all ulcerations and then application of bilateral 3 m wraps which patient has tolerated well in the past. Wound cultures were collected Prior and showed Pseudomonas, strep, and staph and patient was placed on Cipro, clindamycin, and Culturelle Which he has completed. Baseline bloodwork ordered And Essentially normal. Vascular studies Showed venous insufficiency and normal ABIs without any evidence of arterial occlusive disease. Patient educated on the importance of diet on wound healing and instructed to increase protein and vitamin C intake. Patient verbalized understanding. Patient will follow up at wound healing center in one week or sooner if needed. Did instruct patient that after we Get his ulcers healed, he will have to be compliant with his lymphedema pumps. Will also order [place] wraps for compression as well. Patient has been advised to elevate lower extremities as much as possible. Elevation is to be implemented during daytime hours and legs are to be elevated to heart level, or higher, as much as possible. Prolonged idle sitting has been discouraged. Activity and ambulation has been encouraged. Given the duration of his wound and the fact that he has failed standard wound therapy for greater than 4 weeks, will apply for the use of an advanced skin substitute. This note was generated with [email or web address] dictation software. It may contain incorrect words, spelling, and punctuation that were not noted in checking the note before signing. Code Visit 111xxx-113xx: 92525 Carly subq tissue 20 sq cm/<
[2019-03-12 11:02] VITALS: BP 127/91; PULSE 110; RESP 18; TEMP 36.3; BMI 64.5
== END 2019-03-16 23:59 ==
LOC: WC 10:00
PROVIDERS: Referring Provider Nurse Practitioner Family; Visit Provider Nurse Practitioner Family
DX: I83.018 Varicose veins of right lower extremity with ulcer other part of lower leg (principal); L97.812 Non-pressure chronic ulcer of other part of right lower leg with fat layer exposed; I83.028 Varicose veins of left lower extremity with ulcer other part of lower leg; L97.822 Non-pressure chronic ulcer of other part of left lower leg with fat layer exposed; E66.01 Morbid (severe) obesity due to excess calories; Z68.44 Body mass index [BMI] 60.0-69.9, adult; Z71.3 Dietary counseling and surveillance; I89.0 Lymphedema, not elsewhere classified
CPT/HCPCS: 11042; 11045; 29581

== ENCOUNTER 2019-03-25 15:30 | Outpatient (RCR) | payer OTHER, SELFPAY ==
[2019-03-17 00:51] VITALS: BP 127/91; PULSE 110; RESP 18; TEMP 36.3
[2019-03-25 15:30] VITALS: BP 161/100; PULSE 77; RESP 20; TEMP 36.8; BMI 64.5
== END 2019-04-16 23:59 ==
LOC: WC 15:30
PROVIDERS: Referring Provider Nurse Practitioner Family; Visit Provider Nurse Practitioner Family
DX: Z09 Encounter for follow-up examination after completed treatment for conditions other than malignant neoplasm (principal)
CPT/HCPCS: 99213; G0463